=== PATIENT | female | born 1945 | race Two or more races ===

== ENCOUNTER 2024-09-29 13:33 | Outpatient (AMB) | payer MEDICARE, MEDICAID, SELFPAY ==
--- NOTE | 2024-09-29 13:53 | ORTHONT_ITS ---
Vital signs 09/29/24 13:54 Height 1.45 m Height Method Stated Weight 59.052 kg Weight Measurement Method Standing Scale BMI 28.0 BP 141/84 H Blood Pressure Source Automatic Cuff Blood Pressure Location Right Upper Arm Position Sitting Respiration 18 Pulse 60 Pulse Source Monitor Temp 96.7 F L Temp Source Temporal Artery Scan Pulse Oximetry (%) 90 L Oxygen Delivery Method Room Air Med/Allergies Allergies & Medications Allergies honey Allergy (Verified 09/29/24 13:54) latex Allergy (Verified 09/29/24 13:54) Latex, Natural Rubber Allergy (Verified 09/29/24 13:54) Rash Penicillins Allergy (Verified 09/29/24 13:54) FISH OIL Allergy (Uncoded 09/29/24 13:54) Medication Reconciliation lisinopril 10 mg tablet 10 mg PO QDAY 01/07/24 [History Confirmed 09/29/24] alendronate 70 mg tablet 70 mg PO QWEEK 08/12/24 [History Confirmed 09/29/24] acetaminophen 500 mg tablet (Acetaminophen Extra Strength) 1,000 mg (2 x 500 mg) PO Q6H PRN pain #90 tabs 08/17/24 [Rx Confirmed 09/29/24] aspirin 81 mg tablet,delayed release 81 mg PO BID #60 tabs 08/17/24 [Rx Confirmed 09/29/24] doxycycline hyclate 100 mg tablet 100 mg PO BID #14 tabs 08/17/24 [Rx Confirmed 09/29/24] gabapentin 300 mg capsule 300 mg PO .qhs #30 caps 08/17/24 [Rx Confirmed 09/29/24] oxycodone 5 mg tablet 5 mg PO Q6H PRN pain #28 tabs 08/17/24 [Rx Confirmed 09/29/24] sennosides 8.6 mg-docusate sodium 50 mg tablet (Senna-S) 1 tab-cap PO QDAY #30 tabs 08/17/24 [Rx Confirmed 09/29/24] Subjective Visit Visit for: follow up visit and knee Immunization / Flu Flu Vaccine in the Last 12 Months: No Flu Vaccine Exclusion Criteria: Refused by Patient History of Present Illness Chief complaint: Right knee replacement Alda is postop status post right total knee replacement. She is doing well. She is using a walker. She is happy with her progress. Her left knee now hurts her more,. She has tried NSAIDS, pt, and multiple injections in [place]. We have no recent knee xrays. Personal History Red flag PMH: none Pain Pain level (0-10): 7 Pain duration: WITH MOVEMENT Pain location: inside (medial) Pain quality: aching Pain timing: night and increases with activity Associated signs & symptoms: none Ambulatory data Ambulatory device: walker Treatments Improvement with previous injections: No Improvement with PT: No Improvement with NSAIDS: no Review of Systems Review of Systems: All systems negative unless otherwise noted in HPI. Exam Exam Patient is in no acute distress and is cooperative with the examination today. Patient has a normal mood and affect. Breathing is nonlabored. In no respiratory distress. Bilateral extremities were evaluated and demonstrates sensation intact to light touch. Palpable pedal pulses are present. No significant edema is present. Right knee demonstrate incision that is clean dry and intact. He has range of motion is 0 to 100 degrees displaced Assessment and Plan Problem List (1) Bilateral knee pain: Status: Acute Plan: Alda is a 79-year-old female with bilateral knee pain status post right total knee replacement. Her left knee is now bothering her more. I have no recent x- rays but she is failed conservative treatment. We will get x-rays and have her come back for a phone visit (2) Bilateral primary osteoarthritis of knee: Status: Acute Advanced Care Planning Discussion Advance care planning discussed with:: patient Office Procedures GNS Level of Care Nursing/Assessment Patient Status: Established Patient Nursing Assessment/Reassesment: Medication Reconciliation, Update PMH in EMR and Vital Signs Coordination of Care: Complex Care and Chronic Disease 1-5, Education Complex Pt/Fam, Consent,records obtained, informed consent, Results/Orders obtained and Staff clarify orders Special Needs: Language special needs Established Patient Charge Established Patient Point Assignment: 95 Established Patient Point Charge: EP Level 3 (80-115) Past Medical History Past Medical History Have you ever been diagnosed with any of the following: Neurological Problems Transient Ischemic Attacks (TIA): Yes Seizures: No Migraine: Yes (yrs ago) Cardiology Problems Hypercholesterolemia: Yes Congestive Heart Failure: No Hypertension: Yes Respiratory Problems Chronic Obstructive Pulmonary Disease (COPD): No Asthma: Yes Bronchitis: Yes Cough: No Wheezing: No Smoking: No Smoking Cessation Counseling: No Smoking Exposure: No Tobacco Use: No Stomache/Intestinal Problems Hepatitis: No Hiatal Hernia: Yes (abdominal hernia) Genital/Urinary Problems Renal Disease: No Reproductive Problems Previous Pregnancies: Yes Musculoskeletal Problems Arthritis: Yes Osteoporosis: Yes Fractures: Yes (left hip after fall 2022) Endocrine Problems Diabetes Mellitus Type 1: No Diabetes Mellitus Type 2: Yes (was taking med and Dr told her to stooped.) Psychologic Problems Depression: Yes (No meds) Other Problems Hospitalization: Yes (surgery, TIA) Shingles: No Blood Transfusions: No Blood Transfusion Reaction: No Anesthesia Reactions: No Chicken Pox: Yes Measles: Yes Mumps: Yes Cancer: No
[2024-09-29 13:54] VITALS: BP 141/84; PULSE 60; RESP 18; TEMP 35.9; O2SAT 90; BMI 28.0
== END 2024-09-29 13:48 | disposition home or self-care (01) ==
LOC: HODSRG 13:34
PROVIDERS: PCP Family Medicine; Referring Provider Family Medicine; Supervising Provider Orthopaedic Surgery Adult Reconstructive Orthopaedic Surgery; Visit Provider Orthopaedic Surgery Adult Reconstructive Orthopaedic Surgery
DX: M25.561 Pain in right knee (principal); M25.562 Pain in left knee; M17.0 Bilateral primary osteoarthritis of knee; Z96.651 Presence of right artificial knee joint; I10 Essential (primary) hypertension; E78.00 Pure hypercholesterolemia, unspecified; Z86.73 Personal history of transient ischemic attack (TIA), and cerebral infarction without residual deficits
CPT/HCPCS: 99213; G0463

== ENCOUNTER 2024-10-15 11:53 | Outpatient (AMB) | payer MEDICARE, SELFPAY ==
--- NOTE | 2024-10-15 11:31 | ORTHONT_ITS ---
Med/Allergies Allergies & Medications Allergies honey Allergy (Verified 10/15/24 11:31) latex Allergy (Verified 10/15/24 11:31) Latex, Natural Rubber Allergy (Verified 10/15/24 11:31) Rash Penicillins Allergy (Verified 10/15/24 11:31) FISH OIL Allergy (Uncoded 10/15/24 11:31) Medication Reconciliation lisinopril 10 mg tablet 10 mg PO QDAY 01/07/24 [History Confirmed 10/15/24] alendronate 70 mg tablet 70 mg PO QWEEK 08/12/24 [History Confirmed 10/15/24] acetaminophen 500 mg tablet (Acetaminophen Extra Strength) 1,000 mg (2 x 500 mg) PO Q6H PRN pain #90 tabs 08/17/24 [Rx Confirmed 10/15/24] aspirin 81 mg tablet,delayed release 81 mg PO BID #60 tabs 08/17/24 [Rx Confirmed 10/15/24] doxycycline hyclate 100 mg tablet 100 mg PO BID #14 tabs 08/17/24 [Rx Confirmed 10/15/24] gabapentin 300 mg capsule 300 mg PO .qhs #30 caps 08/17/24 [Rx Confirmed 10/15/24] oxycodone 5 mg tablet 5 mg PO Q6H PRN pain #28 tabs 08/17/24 [Rx Confirmed 10/15/24] sennosides 8.6 mg-docusate sodium 50 mg tablet (Senna-S) 1 tab-cap PO QDAY #30 tabs 08/17/24 [Rx Confirmed 10/15/24] Subjective Visit Visit for: follow up visit and knee Immunization / Flu Flu Vaccine in the Last 12 Months: No Flu Vaccine Exclusion Criteria: Refused by Patient and No Exclusion Criteria History of Present Illness Chief complaint: Right knee replacement Alda is postop status post right total knee replacement. She is doing well. She is using a walker. She is happy with her progress regarding her right side,. She has tried NSAIDS, pt, and multiple injections in [place]. She reports the left knee pain is affecting her quality of life and happiness. Personal History Red flag PMH: none Pain Pain level (0-10): 7 Pain duration: WITH MOVEMENT Pain location: inside (medial), outside (lateral) and anterior Pain quality: sharp, dull and aching Pain timing: night and increases with activity Associated signs & symptoms: weakness, stiffness and none Ambulatory data Ambulatory device: walker and none Treatments Improvement with previous injections: No Improvement with PT: No Improvement with NSAIDS: no Review of Systems Review of Systems: All systems negative unless otherwise noted in HPI. Assessment and Plan Problem List (1) Bilateral knee pain: Status: Acute Plan: Alda is a 79-year-old female with bilateral knee pain status post right total knee replacement. Her left knee is now bothering her more. Went over her recent x-rays which demonstrate significant joint space narrowing, osteophytes, and varus deformity. We thus discussed total knee replacement is a reasonable option given her failure of conservative treatment primarily in [employer]. We will plan for surgery in November. The nature and purpose of the total knee replacement, alternative method(s) of treatment, the material risks involved, and the possibility of complications were fully explained to the patient. The patient does NOT have any of the following contraindications to TKA: - Active infection of the knee joint, OR - Active systemic bacteremia, OR - Active skin infection or open wound at surgical site, OR - Neuropathic arthritis, OR - Severe, rapidly progressive neurological disease, OR - Severe medical condition that makes risks of surgery outweigh the potential benefit The patient was told the most common risks and complications associated with a total knee replacement include, but are not limited to: blood clots in the leg, fatal pulmonary embolism, dislocation of the prosthesis, intraoperative and postoperative fractures of the femur or tibia, infection, failure of the prosthesis or grafting materials, complications from anesthesia, reactions to blood transfusions, postoperative leg length inequality, instability of the knee replacement, nerve damage or injury, vascular injury, delayed wound healing, infection, other injury or even . In addition, there are risks associated with anesthesia given during this operation. Also, the patient was told that after undergoing a total knee replacement there may still be persistent pain or disability. The patient was informed that the success of this operation in part depends upon the mechanical devices which are going to be implanted and that these devices can fail or malfunction, and may need to be repaired or replaced and there are no guarantees as to the longevity of this device or its parts and that it or its parts could fail prematurely. The patient was also notified that during the course of surgery, there may be a need to use bone graft from donors, and that any bone graft used will be carefully screened for communicable diseases, including AIDS, hepatitis, Bronson-Creutzfeldt, or other diseases, but despite the screening procedures, there is a small chance that they could contract one of these diseases. Finally, the patient was asked to follow completely and fully with all advice and recommended treatments, and that recovery and ultimate outcome are affected by their compliance with recommended treatment. We discussed the risks, benefits and treatment alternatives, and the patient is interested in proceeding with surgery. We will try to set this up as expeditiously as possible. (2) Bilateral primary osteoarthritis of knee: Status: Acute Advanced Care Planning Discussion Advance care planning discussed with:: patient
== END 2024-10-15 11:54 | disposition home or self-care (01) ==
LOC: HODSRG 11:53
PROVIDERS: PCP Family Medicine; Referring Provider Family Medicine; Supervising Provider Orthopaedic Surgery Adult Reconstructive Orthopaedic Surgery; Visit Provider Orthopaedic Surgery Adult Reconstructive Orthopaedic Surgery
DX: M25.562 Pain in left knee (principal); M25.561 Pain in right knee; M17.0 Bilateral primary osteoarthritis of knee; Z96.651 Presence of right artificial knee joint
CPT/HCPCS: 99212; G0463

== ENCOUNTER 2025-07-27 13:02 | Outpatient (AMB) | payer MEDICARE, SELFPAY ==
--- NOTE | 2025-07-27 13:05 | ORTHONT_ITS ---
Vital signs 07/27/25 13:14 Height 1.45 m Height Method Measured Weight 61.008 kg Weight Measurement Method Standing Scale BMI 29.0 BP 132/69 H Blood Pressure Source Automatic Cuff Blood Pressure Location Left Upper Arm Position Sitting Respiration 18 Pulse 53 L Pulse Source Monitor Temp 98.0 F Temp Source Temporal Artery Scan Pulse Oximetry (%) 92 L Oxygen Delivery Method Room Air Med/Allergies Allergies & Medications Allergies honey Allergy (Verified 07/27/25 13:14) latex Allergy (Verified 07/27/25 13:14) Latex, Natural Rubber Allergy (Verified 07/27/25 13:14) Rash Penicillins Allergy (Verified 07/27/25 13:14) FISH OIL Allergy (Uncoded 07/27/25 13:14) Medication Reconciliation lisinopril 10 mg tablet 10 mg PO QDAY 01/07/24 [History Confirmed 07/27/25] alendronate 70 mg tablet 70 mg PO QWEEK 08/12/24 [History Confirmed 07/27/25] acetaminophen 500 mg tablet (Acetaminophen Extra Strength) 1,000 mg (2 x 500 mg) PO Q6H PRN pain #90 tabs 08/17/24 [Rx Confirmed 07/27/25] aspirin 81 mg tablet,delayed release 81 mg PO BID #60 tabs 08/17/24 [Rx Confirmed 07/27/25] doxycycline hyclate 100 mg tablet 100 mg PO BID #14 tabs 08/17/24 [Rx Confirmed 07/27/25] gabapentin 300 mg capsule 300 mg PO .qhs #30 caps 08/17/24 [Rx Confirmed 07/27/25] oxycodone 5 mg tablet 5 mg PO Q6H PRN pain #28 tabs 08/17/24 [Rx Confirmed 07/27/25] sennosides 8.6 mg-docusate sodium 50 mg tablet (Senna-S) 1 tab-cap PO QDAY #30 tabs 08/17/24 [Rx Confirmed 07/27/25] Exam Exam Patient is in no acute distress and is cooperative with the examination today. Patient has a normal mood and affect. Breathing is nonlabored. In no respiratory distress. Bilateral extremities were evaluated and demonstrates sensation intact to light touch. Palpable pedal pulses are present. No significant edema is present. Right knee demonstrate incision that is clean dry and intact. He has range of motion is 0 to 100 degrees Left knee demonstrates range of motion from 0 to 100 degrees. She has varus alignment. She is tender to palpation medially X-rays from [facility] demonstrates complete joint space obliteration medial significant osteophytes Assessment and Plan Problem List (1) Bilateral knee pain: Status: Acute Plan: Alda is a 79-year-old female with bilateral knee pain status post right total knee replacement. Her left knee is now bothering her more. X-rays of the left knee demonstrates [id number] arthritis of the medial compartment. She has failed conservative treatment occluding multiple injections, anti- inflammatories, and home exercises. We thus discussed total knee replacement is a reasonable option The nature and purpose of the total knee replacement, alternative method(s) of treatment, the material risks involved, and the possibility of complications were fully explained to the patient. The patient does NOT have any of the following contraindications to TKA: - Active infection of the knee joint, OR - Active systemic bacteremia, OR - Active skin infection or open wound at surgical site, OR - Neuropathic arthritis, OR - Severe, rapidly progressive neurological disease, OR - Severe medical condition that makes risks of surgery outweigh the potential benefit The patient was told the most common risks and complications associated with a total knee replacement include, but are not limited to: blood clots in the leg, fatal pulmonary embolism, dislocation of the prosthesis, intraoperative and postoperative fractures of the femur or tibia, infection, failure of the prosthesis or grafting materials, complications from anesthesia, reactions to blood transfusions, postoperative leg length inequality, instability of the knee replacement, nerve damage or injury, vascular injury, delayed wound healing, infection, other injury or even . In addition, there are risks associated with anesthesia given during this operation. Also, the patient was told that after undergoing a total knee replacement there may still be persistent pain or disability. The patient was informed that the success of this operation in part depends upon the mechanical devices which are going to be implanted and that these devices can fail or malfunction, and may need to be repaired or replaced and there are no guarantees as to the longevity of this device or its parts and that it or its parts could fail prematurely. The patient was also notified that during the course of surgery, there may be a need to use bone graft from donors, and that any bone graft used will be carefully screened for communicable diseases, including AIDS, hepatitis, Bronson-Creutzfeldt, or other diseases, but despite the screening procedures, there is a small chance that they could contract one of these diseases. Finally, the patient was asked to follow completely and fully with all advice and recommended treatments, and that recovery and ultimate outcome are affected by their compliance with recommended treatment. We discussed the risks, benefits and treatment alternatives, and the patient is interested in proceeding with surgery. We will try to set this up as expeditiously as possible. (2) Bilateral primary osteoarthritis of knee: Status: Acute Advanced Care Planning Discussion Advance care planning discussed with:: patient Office Procedures GNS Level of Care Nursing/Assessment Patient Status: Established Patient Nursing Assessment/Reassesment: Medication Reconciliation, Orthostatic Vitals, Update PMH in EMR and Vital Signs Coordination of Care: Complex Care and Chronic Disease 1-5, Education Complex Pt/Fam, Consent,records obtained, informed consent, Results/Orders obtained and Staff clarify orders Special Needs: Language special needs Established Patient Charge Established Patient Point Assignment: 105 Established Patient Point Charge: EP Level 3 (80-115) MA Intake Visit Data Collection New Patient or Established: Established Patient (seen at [facility] within 3 years) Reason for Visit:: XRAY RESULTS Seen by Clinical Staff ONLY (RN/MA): No Immunopathologist Required: No PCP or OBGYN visit in last 3 months: Yes Hx Now: No Do You Feel Safe at Home: Yes Authorities Contacted: N/A Questionairres Past Medical History Past Medical History Have you ever been diagnosed with any of the following: Neurological Problems Transient Ischemic Attacks (TIA): Yes Seizures: No Migraine: Yes (yrs ago) Cardiology Problems Hypercholesterolemia: Yes Congestive Heart Failure: No Hypertension: Yes Respiratory Problems Chronic Obstructive Pulmonary Disease (COPD): No Asthma: Yes Bronchitis: Yes Cough: No Wheezing: No Smoking: No Smoking Cessation Counseling: No Smoking Exposure: No Tobacco Use: No Stomache/Intestinal Problems Hepatitis: No Hiatal Hernia: Yes (abdominal hernia) Genital/Urinary Problems Renal Disease: No Reproductive Problems Previous Pregnancies: Yes Musculoskeletal Problems Arthritis: Yes Osteoporosis: Yes Fractures: Yes (left hip after fall 2022) Endocrine Problems Diabetes Mellitus Type 1: No Diabetes Mellitus Type 2: Yes (was taking med and told her to stooped.) Psychologic Problems Depression: Yes (No meds) Other Problems Hospitalization: Yes (surgery, TIA) Shingles: No Blood Transfusions: No Blood Transfusion Reaction: No Anesthesia Reactions: No Chicken Pox: Yes Measles: Yes Mumps: Yes Cancer: No Subjective Visit Visit for: follow up visit and knee Immunization / Flu Flu Vaccine in the Last 12 Months: Yes Flu Vaccine Exclusion Criteria: Already Received History of Present Illness Chief complaint: XRAY RESULTS Patient is a pleasant 80 yo female with a right total knee replacement done 11 months ago. We have done multiple injections in the past as well as anti- inflammatories and Tylenol. At this point in time, she reports the pain is affecting her life. She is still using a walker because of the left knee pain. She reports her right knee does not hurt at all. Personal History Red flag PMH: none BMI Counceling provided: No Pain Pain level (0-10): 9 Pain quality: burning and tingling Pain timing: night Associated signs & symptoms: none Ambulatory data Ambulatory device: walker Treatments Improvement with previous injections: No Improvement with PT: No Improvement with NSAIDS: no Review of Systems Review of Systems: All systems negative unless otherwise noted in HPI.
[2025-07-27 13:14] VITALS: BP 132/69; PULSE 53; RESP 18; TEMP 36.7; O2SAT 92; BMI 29.0
== END 2025-07-27 13:28 | disposition home or self-care (01) ==
LOC: HODSRG 13:02
PROVIDERS: PCP Family Medicine; Referring Provider Family Medicine; Supervising Provider Orthopaedic Surgery Adult Reconstructive Orthopaedic Surgery; Visit Provider Orthopaedic Surgery Adult Reconstructive Orthopaedic Surgery
DX: M25.562 Pain in left knee (principal); M25.561 Pain in right knee; M17.0 Bilateral primary osteoarthritis of knee; Z96.651 Presence of right artificial knee joint; I10 Essential (primary) hypertension; E78.00 Pure hypercholesterolemia, unspecified; Z86.73 Personal history of transient ischemic attack (TIA), and cerebral infarction without residual deficits; E11.9 Type 2 diabetes mellitus without complications
CPT/HCPCS: 99213; G0463

== ENCOUNTER → 2025-08-12 | Outpatient (CLI) | payer MEDICARE, SELFPAY ==
--- NOTE | 2025-08-12 | XR_ITS ---
Examination: CT left lower extremity, without contrast. 2-D sagittal reconstructions. 2-D coronal reconstructions. 3-D reconstructions. Date and time of exam:August 12, 2025 at 1240 hours INDICATIONS: Diagnosis primary left knee unilateral osteoarthritis, left knee pain for years CTDI: vol (mGy):18.5 DLP: (mGycm): 776 Technique: Multiple 1.25 mm axial sections of the left lower extremity without intravenous contrast have been obtained. 2-D sagittal and coronal reconstructions have been obtained. 3-D reconstructions have been obtained. Low dose protocols were performed. One or more of the following dose reduction techniques were used; automated exposure control, adjustment of the mA and/or KV according to patient size, use of iterative reconstruction technique. Findings: Severe osteopenia. Healed left hip fracture, moderate left hip osteoarthritis Severe left knee tricompartment osteoarthritis Severe osteopenia No fracture No patellar dislocation IMPRESSION: Severe left knee tricompartment osteoarthritis
== END | disposition home or self-care (01) ==
PROVIDERS: PCP Family Medicine; Referring Provider Orthopaedic Surgery Adult Reconstructive Orthopaedic Surgery; Visit Provider Orthopaedic Surgery Adult Reconstructive Orthopaedic Surgery
DX: M17.12 Unilateral primary osteoarthritis, left knee (principal)
CPT/HCPCS: 73700

== ENCOUNTER 2025-08-25 07:35 | Day surgery (SDC) | payer MEDICARE, SELFPAY ==
[2025-08-20 07:25] VITALS: BMI 29.8
[2025-08-20 08:11] LABS: Basophils # (Auto) 0.0 Thou/mm3 (0.0-0.2); Basophils % (Auto) 1 % (0-2.5); Eosinophils # (Auto) 0.2 Thou/mm3 (0.0-0.5); Eosinophils % (Auto) 3 % (0-10); Hematocrit 38.5 % (36.0-46.0); Hemoglobin 13.0 g/dL (12.0-16.0); Immature Granulocytes Auto 0.02 Thou/mm3 (0.00-0.00); Lymphocytes # (Auto) 2.0 Thou/mm3 (1.0-4.8); Lymphocytes % (Auto) 41 % (10-50); Mean Corpuscular HGB Conc 33.8 g/dl (31.0-37.0); Mean Corpuscular Hemoglobin 31.4 pg (25.0-35.0); Mean Corpuscular Volume 93 fL (80-100); Monocytes # (Auto) 0.5 Thou/mm3 (0.0-0.8); Monocytes % (Auto) 10 % (0-12); Neutrophils # (Auto) 2.2 Thou/mm3 (1.8-7.7); Neutrophils % (Auto) 45 % (37-80); Nucleated Red Blood Cell # 0.00 Thou/mm3 (0.00-0.00); Nucleated Red Blood Cell % 0 /100 WBC (0); Platelet Count 157 Thou/mm3 (140-440); RDW Standard Deviation 45.4 fL (36.4-46.3); Red Blood Count 4.14 Miln/mm3 (4.00-5.20); White Blood Count 4.9 Thou/mm3 (3.6-11.0)
[2025-08-20 08:31] LABS: Alanine Aminotransferase 8 U/L (10-49); Albumin, Serum 3.8 gm/dL (3.4-4.8); Albumin/Globulin Ratio 1.6 (1.2-2.2); Alkaline Phosphatase 51 U/L (46-116); Anion Gap 8 (7-16); Aspartate Amino Transferase 15 U/L (0-34); BUN/Creatinine Ratio 16 Ratio (12-20); Bilirubin,Total 1.1 mg/dL (0.3-1.2); Blood Urea Nitrogen 13 mg/dL (9-23); Calcium 10.8 mg/dL (8.3-10.6); Calcium (Corrected) 11.0 mg/dL (8.5-10.1); Carbon Dioxide 29.5 mMol/L (20.0-31.0); Chloride 102 mMol/L (98-107); Creatinine (Component) 0.8 mg/dL (0.6-1.3); Estimated Creatinine Clearance 44.1 mL/min (>60); Globulin 2.4 gm/dL (2.3-3.5); Glucose 98 mg/dL (74-106); Osmolality,Calculated 277 (275-295); Potassium 3.8 mMol/L (3.4-5.1); Sodium 139 mMol/L (136-145); Total Protein 6.2 gm/dL (5.7-8.2); eGFR > 60 See Note
[2025-08-20 08:35] LABS: INR 1.0 (0.9-1.3); Partial Thromboplastin Time 26.5 Seconds (22.0-36.0); Prothrombin Time 10.9 Seconds (9.0-12.2)
[2025-08-25] VITALS (13 sets, daily range): BP systolic 129–170; BP diastolic 61–83; PULSE 58–78; RESP 13–18; TEMP 36.1–36.8; O2SAT 92–97; BMI 29.2; BMI 13.0
--- NOTE | 2025-08-25 07:54 | EKG_ITS ---
[facility] Test Date: 2025-08-25 Pat Name: LISSETT FABIAN Department: Room: - Gender: Female Physician Office Rep: LIBERTY : 1945 Requested By: Chuy Sequeira Order Number: [id number] Reading MD: Chuy Sequeira Measurements Intervals [place] Rate: 56 P: 53 ND: 164 QRS: -18 QRSD: 102 T: 15 QT: 433 QTc: 418 Interpretive Statements SINUS BRADYCARDIA No previous ECG available for comparison /store/S0/[id number]
[2025-08-25] MEDS: PREGABALIN 75 MG CAPSULE PO (08:43)
[2025-08-25] MEDS: ACETAMINOPHEN 325 MG TABLET 650 MG PO (08:44)
--- NOTE | 2025-08-25 10:49 | PD.SUROPNT ---
Date of Procedure 08/25/25 Pre Op Diagnosis left knee osteoarthritis Post Op Diagnosis left knee osteoarthritis Procedure left total knee replacement dasha Findings full thickness cartilage loss and osteophytes Procedure Description Indication: The patient is a 80 year old who has a long history of left knee pain. X-rays show degenerative arthritis involving the knee. Over the past several years the patient has had increasing pain, progressive limitation in function. He has failed conservative measures including activity modification, physical therapy, injections, anti-inflammatories, and assistive devices. After a lengthy discussion of the risks and benefits, the patient presents now for total knee replacement. The nature and purpose of the total knee replacement, alternative method(s) of treatment, the material risks involved, and the possibility of complications were fully explained to the patient. The patient was told the most common risks and complications associated with a total knee replacement include, but are not limited to blood clots in the leg, fatal pulmonary embolism, dislocation of the prosthesis, intraoperative and postoperative fractures of the femur or tibia, infection, failure of the prosthesis or grafting materials, complications from anesthesia, reactions to blood transfusions, postoperative leg length inequality, instability of the knee replacement, nerve damage or injury, vascular injury, delayed wound healing, infections, other injury or even . In addition, there are risks associated with anesthesia given during this operation, temporary or permanent numbness on the skin lateral to the incision can be a complication unique to total knee surgery, and kneeling can be painful after knee replacement surgery. Also, the patient was told that after undergoing a total knee replacement there may still be pain or disability. We discussed with the patient that we will be using a robot-assisted technology. We discussed that there is a possibility of converting to manual instrumentation. The patient was informed that the success of this operation in part depends upon the mechanical devices which are going to be implanted and that these devices can fail or malfunction, and may need to be repaired or replaced and there are no guarantees as to the longevity of this device or its part and that it or its parts could fail prematurely. Finally, the patient was asked to follow completely and fully with all advice and recommended treatments, and that recovery and ultimate outcome are affected by their compliance with recommended treatment. Surgical technique: Patient was marked and consented in the pre-operative area. The patient was brought to the operating room and placed on the operating table in a supine position. Prior to positioning, a timeout procedure was performed between the surgeon, the anesthesiologist, and the nursing staff where the patient and the operative side were identified and confirmed. After adequate general anesthetic was obtained, the left lower extremity was prepped and draped in the usual sterile fashion. A weight based dose of Cefazolin were administered within 1 hour prior to incision. The robot was preregistered and calirated before the incision. The extremity was exsanguinated with an esmarch badge and tourniquet inflated to 250mmHg. A midline incision was made. A median parapatellar arthrotomy was made. The patella was subluxed laterally. A medial release was performed to expose the medial tibia. His femoral and tibial pins were placed through an intra incisional manner for both cases. Every effort was made to ensure that the distalmost aspect of the pin was hung in the second cortex. The arrays were then tightened several times to ensure that it was fixed for the remainder of the case. Both femoral and tibial checkpoints were then placed. We then went through the registration process of the bone. We then assessed the knee deformity and attempted to correct it. We also used the robot to aid in judging laxity in both extension and flexion. Final based on laxity and alignment we changed the preoperative assessment to obtain proper proper implant positioning and to correct deformity. Attention was then placed to the tibia. We made a tibial cut using the robot ensuring that both the MCL and the patella tendon were protected with retractors. We then went to the femur and made the posterior cut followed by the anterior cut and the anterior chamfer. The bone was then removed and we made a distal femur cut and a posterior chamfer cut. We verified all cuts. A trial reduction was performed with a size 3 femoral component and a size 2 keeled tibial component. The patella tracked centrally, and no lateral retinacular release was necessary. The trial implants were removed. The arrays, pins, and checkpoints were all removed. We performed a verification that all pins were removed. The cut bone surfaces were lavaged. A size 3 left femoral component, a size 2 keeled tibial component were impacted into position using 2 bags of palacos. A trial insert was placed. The knee was left in extension until the cement hardened. The knee was felt to be well balanced in the sagittal and coronal plane. The final 2x11mm cruciate-substituting articular insert was impacted into the tibial tray. The knee was brought out to full extension, flexed up to 120 degrees. It was stable to varus and valgus stress and appropriately balanced in flexion and extension. The wounds were copiously irrigated following deflation of tourniquet. The medial retinaculum was reapproximated with #1 vicryl and quill. The subcutaneous tissues were closed with 0 and 2-0 interrupted Vicryl. The skin was closed with 3-0 Monofilament V loc suture. A sterile dressing was applied. The patient was transferred to a bed and brought to recovery in stable condition. The patient tolerated the procedure well. There were no intraoperative complications. Sponge and needle counts were correct times 2. As the attending surgeon, I attest I was present and performed the entire operation. Grafts/Implants Size 3 CR Femur Size 2 Tibia 11mm poly CS 2 bags of palacos Anesthesia spinal Implants [employer] Pathology / specimen None Pathology comment: none Estimated Blood Loss 150 Condition Stable Disposition same day Surgeon Reuben Sapp MD Surgical Staff Operation Date: 08/25/25 10:30 Case Staff Anesthesiologist: Chuy Sequeira RNpredatory animal exterminator: She Pillai
--- NOTE | 2025-08-25 11:02 | XR_ITS ---
Examination: Left knee 2 views Technique one AP lateral left knee 2 views Date and time: August 25, 2025 1214 hours INDICATIONS: Postop knee surgery today. FINDINGS: Total left knee arthroplasty. Satisfactory alignment. Prominent osteopenia IMPRESSION: Total left knee arthroplasty with satisfactory alignment
--- NOTE | 2025-08-25 11:27 | SUR.PHASEI ---
pt received from OR in recovery bay 8. pt asleep but responds to voice, breathing unlabored on room air. v/s stable. pt dressing to left lower extremity cdi. report received from Dr. Sequeira and Clotilde MOREIRA.
--- NOTE | 2025-08-25 12:30 | SUR.PHASEI ---
pt tolerating oral fluids without difficulty swallowing or n/v
--- NOTE | 2025-08-25 12:55 | SUR.PHASEII ---
report to Bernabe MOREIRA
--- NOTE | 2025-08-25 15:00 | SUR.PHASEII ---
pt awake and alert, breathing unlabored on room air. v/s stable. pt dressing to left lower extremity cdi. pt cleared by physical therapist Mala. pt able to ambulate to pacu restroom with walker. d/c instructions given with daughter Dorothy in room, all questions answered. pt d/c via wheelchair with all belongings.
== END 2025-08-25 15:00 | disposition home or self-care (01) ==
PROVIDERS: Anesthesiology; PCP Family Medicine; Referring Provider Orthopaedic Surgery Adult Reconstructive Orthopaedic Surgery; Visit Provider Orthopaedic Surgery Adult Reconstructive Orthopaedic Surgery
PROC: (CPT 20985; principal; 2025-08-25 10:30)
DX: M17.12 Unilateral primary osteoarthritis, left knee (principal); M25.762 Osteophyte, left knee; Z01.810 Encounter for preprocedural cardiovascular examination
CPT/HCPCS: 20985; 27447; 36415; 73560; 80053; 85025; 85610; 85730; 93005; 97162; A4217; A4649; C1713; C1776; J0690; J1100; J2250; J2704; J2795; J3010; J3490; J7999; A4648; A9270

== ENCOUNTER 2025-08-29 08:05 | Emergency (ER) | payer MEDICARE, SELFPAY ==
[2025-08-29 08:07] VITALS: BMI 24.7
--- NOTE | 2025-08-29 08:14 | EKG_ITS ---
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
[2025-08-29 08:23] VITALS: BP 156/89; PULSE 52; RESP 17; TEMP 36.7; O2SAT 95
--- NOTE | 2025-08-29 08:37 | PD.EDRME ---
Rapid Medical Screening Exam E Arrival date/time: 08/29/25 08:05 This is is a 80-year-old female that comes into the emergency room with multiple complaints. Patient reports that she recently had a knee replacement on August [address] Sapp. Patient states that she started noticing that she had some irritation around the wound. And she also noticed that when she take the antibiotic she felt itchy. Patient currently on doxycycline. Patient has been seeing home health physical therapy and they told her to remove the adhesive dressing over the surgical site. Per patient's daughter after they removed that patient skin became very irritated and got blisters at the bottom part of the wound. Patient was told to keep wound uncovered for now. Patient also reports that starting yesterday she started having palpitations patient states that she felt like her heart was beating out of her chest. Patient states that this resolved when she was cough being. Patient denies chest pain shortness of breath at this time. I have greeted and performed a focused initial assessment of this patient. Initial appropriate labs ordered at this time. A comprehensive ED assessment and evaluation of the patient and analysis of all test and completion of medical decision making process will be conducted by additional ED provider. Chief Complaint: General Adult/Misc Complain Time Seen by Provider: 08/29/25 08:14 Vital signs: Vital Signs Temperature 98.0 F 08/29/25 08:23 Pulse Rate 52 L 08/29/25 08:23 Respiratory Rate 17 08/29/25 08:23 Blood Pressure 156/89 H 08/29/25 08:23 Pulse Oximetry (%) 95 08/29/25 08:23 Oxygen Delivery Method Room Air 08/29/25 08:23
--- NOTE | 2025-08-29 08:40 | XR_ITS ---
Examination: AP chest single view Technique one AP portable sitting chest single view Date and time: August 29, 2025, 0859 hrs. Indications: Chest pain today. Findings: Mild prominence left ventricle. Ectatic thoracic aorta. No pneumonia or pulmonary edema. Moderate osteopenia. Impression: No pneumonia or pulmonary edema
[2025-08-29 09:37] LABS: Basophils # (Auto) 0.0 Thou/mm3 (0.0-0.2); Basophils % (Auto) 1 % (0-2.5); Eosinophils # (Auto) 0.1 Thou/mm3 (0.0-0.5); Eosinophils % (Auto) 2 % (0-10); Hematocrit 37.0 % (36.0-46.0); Hemoglobin 12.8 g/dL (12.0-16.0); Immature Granulocytes Auto 0.02 Thou/mm3 (0.00-0.00); Lymphocytes # (Auto) 1.3 Thou/mm3 (1.0-4.8); Lymphocytes % (Auto) 30 % (10-50); Mean Corpuscular HGB Conc 34.6 g/dl (31.0-37.0); Mean Corpuscular Hemoglobin 32.4 pg (25.0-35.0); Mean Corpuscular Volume 94 fL (80-100); Monocytes # (Auto) 0.5 Thou/mm3 (0.0-0.8); Monocytes % (Auto) 12 % (0-12); Neutrophils # (Auto) 2.4 Thou/mm3 (1.8-7.7); Neutrophils % (Auto) 55 % (37-80); Nucleated Red Blood Cell # 0.00 Thou/mm3 (0.00-0.00); Nucleated Red Blood Cell % 0 /100 WBC (0); Platelet Count 167 Thou/mm3 (140-440); RDW Standard Deviation 45.5 fL (36.4-46.3); Red Blood Count 3.95 Miln/mm3 (4.00-5.20); White Blood Count 4.4 Thou/mm3 (3.6-11.0)
[2025-08-29 09:45] VITALS: BP 159/82; PULSE 66; RESP 16; O2SAT 97
[2025-08-29 09:50] LABS: B-Type Natriuretic Peptide 43 pg/mL (0-100)
[2025-08-29 10:02] LABS: Albumin, Serum 3.9 gm/dL (3.4-4.8); Albumin/Globulin Ratio 1.6 (1.2-2.2); Alkaline Phosphatase 61 U/L (46-116); Anion Gap 7 (7-16); Aspartate Amino Transferase 23 U/L (0-34); BUN/Creatinine Ratio 11 Ratio (12-20); Bilirubin,Total 1.2 mg/dL (0.3-1.2); Blood Urea Nitrogen 9 mg/dL (9-23); Calcium 9.6 mg/dL (8.3-10.6); Calcium (Corrected) 9.7 mg/dL (8.5-10.1); Carbon Dioxide 30.3 mMol/L (20.0-31.0); Chloride 97 mMol/L (98-107); Creatinine (Component) 0.8 mg/dL (0.6-1.3); Estimated Creatinine Clearance 49.9 mL/min (>60); Globulin 2.4 gm/dL (2.3-3.5); Glucose 109 mg/dL (74-106); Osmolality,Calculated 267 (275-295); Potassium 4.0 mMol/L (3.4-5.1); Sodium 134 mMol/L (136-145); Total Protein 6.3 gm/dL (5.7-8.2); Troponin I < 0.020 ng/mL (0.0-0.045); eGFR > 60 See Note
[2025-08-29 10:04] LABS: Alanine Aminotransferase 10 U/L (10-49)
[2025-08-29 10:19] VITALS: BP 162/72; PULSE 51; RESP 16; TEMP 36.4; O2SAT 97
--- NOTE | 2025-08-29 10:34 | EKG_ITS ---
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
[2025-08-29] MEDS: FAMOTIDINE INJ 10 MG/ML VIAL 2 ML 20 MG IVP (10:53)
[2025-08-29] MEDS: MethylPREDNISolone SOD SUCC 62.5 MG/ML 2ML VIAL 125 MG IVP (10:53)
--- NOTE | 2025-08-29 10:59 | PD.EDSKIN ---
ED Skin Abcess FB-RME/HPI General Chief complaint: General Adult/Misc Complain Stated complaint: MULTIPLE COMPLAINTS Time Seen by Provider: 08/29/25 08:14 Arrival date/time: 08/29/25 08:05 Limitations: no limitations RME / HPI RME / HPI narrative: 08/29/25 08:05 This is is a 80-year-old female that comes into the emergency room with multiple complaints. Patient reports that she recently had a knee replacement on August [address] Sapp. Patient states that she started noticing that she had some irritation around the wound. And she also noticed that when she take the antibiotic she felt itchy. Patient currently on doxycycline. Patient has been seeing home health physical therapy and they told her to remove the adhesive dressing over the surgical site. Per patient's daughter after they removed that patient skin became very irritated and got blisters at the bottom part of the wound. Patient was told to keep wound uncovered for now. Patient also reports that starting yesterday she started having palpitations patient states that she felt like her heart was beating out of her chest. Patient states that this resolved when she was cough being. Patient denies chest pain shortness of breath at this time. I have greeted and performed a focused initial assessment of this patient. Initial appropriate labs ordered at this time. A comprehensive ED assessment and evaluation of the patient and analysis of all test and completion of medical decision making process will be conducted by additional ED provider. DR. 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 The patient underwent a left knee replacement on August [address] Sapp. She reports that she initially noticed itching and irritation around the wound, which worsened after her home health team removed the adhesive dressing as instructed. Following removal, the skin around the lower portion of the incision developed blisters and increased redness. She is currently taking doxycycline but reports feeling itchy when taking the antibiotic. She denies fever, chills, drainage, or worsening pain at the incision site. Per daughter, the patient has multiple allergies and saw an health program specialist, but no results yet. Related Data Home Medications ?Medication ?Instructions ?Recorded ?Confirmed alendronate 70 mg tablet 70 mg PO QWEEK 08/12/24 08/25/25 lisinopril 20 1 tab PO DAILY 08/20/25 08/25/25 mg-hydrochlorothiazide 25 mg tablet Previous Rx's ?Medication ?Instructions ?Recorded aspirin 81 mg tablet,delayed 81 mg PO BID #60 tabs 08/17/24 release acetaminophen 500 mg tablet 1,000 mg (2 x 500 mg) PO Q6H PRN 08/25/25 (Acetaminophen Extra Strength) pain #90 tabs aspirin 81 mg tablet,delayed 81 mg PO BID #60 tabs 08/25/25 release doxycycline hyclate 100 mg tablet 100 mg PO BID #14 tabs 08/25/25 gabapentin 300 mg capsule 300 mg PO .qhs #30 caps 08/25/25 oxycodone 5 mg tablet 5 mg PO Q6H PRN pain #28 tabs 08/25/25 sennosides 8.6 mg-docusate sodium 1 tab-cap PO QDAY #30 tabs 08/25/25 50 mg tablet (Senna-S) clindamycin HCl 300 mg capsule 300 mg PO Q6H #8 caps 08/29/25 (Cleocin HCl) epinephrine 0.3 mg/0.3 mL 0.3 ml subcut PRN PRN anaphylaxis 08/29/25 injection, auto-injector (Auvi-Q) #2 ea Allergies Allergy/AdvReac Type Severity Reaction Status Date / Time doxycycline Allergy Severe Hives Verified 08/29/25 08:13 honey Allergy Severe Hives Verified 08/29/25 08:13 Penicillins Allergy Severe Hives Verified 08/29/25 08:13 Latex, Natural Rubber Allergy Rash Verified 08/29/25 08:13 FISH OIL Allergy Uncoded 08/29/25 08:13 Review of Systems Review of Systems Systems Reviewed: All systems reviewed, normal except as documented Past Medical History Past Medical History NEUROLOGIC: Positive Neurological Disorders, Transient Ischemic Attacks (TIA) and Migraine (yrs ago) CARDIAC: Positive Cardiac Disorders, Hypercholesterolemia and Hypertension RESPIRATORY: Positive Asthma and Bronchitis GASTROINTESTINAL: Positive Gastrointestinal Disorders (constipation) and Hiatal Hernia (abdominal hernia) REPRODUCTIVE: Positive Previous Pregnancies MUSCULOSKELETAL: Positive Musculoskeletal Disorders, Arthritis, Osteoporosis and Fractures (left hip after fall 2022) ENDOCRINE: Positive Endocrine Disorders and Diabetes Mellitus Type 2 (was taking med and Dr told her to stooped.) PSYCHO/SOCIAL: Positive Depression (No meds) OTHER HISTORY: Positive Hospitalization (surgery, TIA), Falls, Chicken Pox, Measles and Mumps Family History FAMILY HISTORY: Positive Family Cardiac Disorders, Family Cancer and Family Surgery Surgical History SURGICAL: Positive Joint Replacement Social History SMOKING STATUS: Never smoker SUBSTANCE USE: does not use ALCOHOL: Never ED Exam General Limitations: Present no limitations General appearance: Present alert and in no apparent distress Head Head exam: Present atraumatic, normocephalic and normal inspection Eye Eye exam: Present normal appearance, PERRL and EOMI ENT ENT exam: Present normal exam, normal oropharynx and mucous membranes moist Neck Neck exam: Present normal inspection, full ROM and trachea midline Chest Chest inspection: Present normal inspection and symmetric chest wall rise Respiratory Respiratory exam: Present normal lung sounds bilaterally; Absent respiratory distress, wheezes or stridor Cardiovascular Cardiovascular exam: Present normal rhythm, bradycardia and normal heart sounds Abdominal Exam Abdominal exam: Present soft and normal bowel sounds; Absent distention, tenderness or guarding Extremities Exam Extremities exam: Present other (Left knee surgical incision clean, dry, and intact with mild erythema and blistering noted at the inferior aspect. No purulent drainage, fluctuance, or warmth. Range of motion limited due to post-surgical status.) Back Exam Back exam: Present normal inspection and full ROM Neurological Exam Neurological exam: Present alert, oriented X3 and CN II-XII intact Psychiatric Psychiatric exam: Present normal affect and normal mood Skin Skin exam: Present other (Blistering localized around left knee incision site, no diffuse rash or urticaria elsewhere.) Course Quality Measures none Orders Category Date Time Status EKG (ED ONLY) *Do not use* NOW Care 08/29/25 08:14 Completed EKG (ED ONLY) *Do not use* NOW Care 08/29/25 10:[address] head/brain wo con Stat Exams 08/29/25 11:20 Completed EKG (ED Only) Stat Exams 08/29/25 08:14 Draft EKG (ED Only) Stat Exams 08/29/25 10:34 Draft XR chest 1V Stat Exams 08/29/25 08:40 Completed BNP [B-Type Natriuretic Peptide] Stat Lab 08/29/25 08:57 Completed CBC Stat Lab 08/29/25 08:57 Completed Comprehensive Metabolic Panel Stat Lab 08/29/25 08:57 Completed Troponin I Stat Lab 08/29/25 08:57 Completed Troponin I Stat Lab 08/29/25 11:54 Completed Clindamycin [Cleocin] Med 08/29/25 14:02 Discontinued 300 mg PO X1 ONE DiphenhydrAMINE INJ [Benadryl Inj] Med 08/29/25 10:33 Discontinued 25 mg IVP X1 ONE Famotidine Inj [Pepcid Inj] Med 08/29/25 10:35 Discontinued 20 mg IVP X1 ONE MethylPREDNISolone.* [SoluMEDROL Inj] Med 08/29/25 10:33 Discontinued 125 mg IVP X1 ONE Ringers Lactated 1000 ml [Lactated Ringers] 1,000 ml Med 08/29/25 11:15 Discontinued IV 999 mls/hr Vital Signs Vital signs: Vital Signs Temperature 98.0 F 08/29/25 08:23 Pulse Rate 52 L 08/29/25 08:23 Respiratory Rate 17 08/29/25 08:23 Blood Pressure 156/89 H 08/29/25 08:23 Pulse Oximetry (%) 95 08/29/25 08:23 Oxygen Delivery Method Room Air 08/29/25 08:23 Skin / Abscess / Foreign Body MDM Narrative MDM Narrative:: Patient is a 80-year-old female seen emerged from concerns for left lower extremity pain and blisters. Vital signs and exam as listed. Concern for allergic reaction to adhesive tape that had been placed on patient postoperatively. Also concern for allergic reaction to patient's antibiotic given that she started taking doxycycline and then felt itchy all over. Patient also with chronic bradycardia, heart rate in the 40s is her baseline. She has been evaluated by a cinder crusher operator for her bradycardia and state that this is her normal and given that she is asymptomatic does not need intervention 1118: After Benadryl, famotidine, and steroids the patient became teary eye and shaky and her heart rate went from her usual 40s to be in the 60?s. She is breathing well, no stridor, no oropharyngeal swelling, no rashes, no vomiting. After a few minutes, the patient stated she felt better. Per daughter, the patient has multiple allergies and saw an health program specialist, but no results of work up yet. Labs without any acute hematologic or significant metabolic abnormality, troponin normal on 2 different assessments, EKG with evidence of sinus bradycardia, chest x-ray unremarkable, head CT without any acute intracranial abnormalities. On multiple reassessments, patient back at her neurologic baseline, GCS 15, mentating well, hemodynamically stable, no signs of respiratory distress abdominal pain shortness of breath. Discussed at length patient's allergies with pharmacist, given her allergies to penicillins, doxycycline, recommends that we switch patient over to clindamycin. patient daughter request that we trail an alternative abx to docycycline while in the ED given her allergy hx. Consulted pharmacy, confirmed prophylactic dosing. Provided her with a dose of clindamycin here. Patient tolerated well following a period of observation. Will discharge to home with close return precautions follow-up with her primary care doctor. Patient only has 2 more days of antibiotics left. Advised her to stop the doxycycline and instead continue clindamycin. I, bAril Cardenas am scribing for and in the presence of Dr. De La Rosa. Patient data External records reviewed:: [facility] previous records Clinical information provided by:: patient and family Social determinants that could affect healthcare access:: none Patient has the following chronic illnesses:: History of bradycardia (baseline per cinder crusher operator). The patient underwent a left knee replacement on August [address] Sapp. How is presenting disease/condition affected by chronic disease/condition?: exacerbated by Evaluation data The following diagnostics were reviewed and interpreted by me:: lab results, radiology exam(s) and EKG tracing(s) (My interpretation: EKG performed at 1137 hours, sinus bradycardia, rate 58, normal intervals, non specific T wave changes, not a cardiac alert) Lab and/or radiology exams considered but not ordered:: none Interpretation Summary: See MDM narrative above. RADIOLOGY Procedure(s): XR chest 1V Accession Number(s): [id number] cc: Adama Pichardo MD; John Perales MD; Josee Jaramillo NP~ Examination: AP chest single view Technique one AP portable sitting chest single view Date and time: August 29, 2025, 0859 hrs. Indications: Chest pain today. Findings: Mild prominence left ventricle. Ectatic thoracic aorta. No pneumonia or pulmonary edema. Moderate osteopenia. Impression: No pneumonia or pulmonary edema Dictated By: John Perales MD Procedure(s): CT head/brain wo con Accession Number(s): [id number] cc: Adama Pichardo MD; John Perales MD; Sandy De La Rosa MD~ Examination: CT brain head without contrast. 2-D sagittal coronal reconstructions Date and time of exam:August 29, 2025, 12:29 PM Indications: Onset altered mental status confusion today CTDI: vol (mGy):44.6 DLP: (mGycm):813 Technique: Multiple CT axial sections of the brain have been obtained, 5 mm slice thickness. Contrast has not been administered. 2-D sagittal, coronal reconstructions have been obtained Low dose protocols were performed. One or more of the following dose reduction techniques were used; automated exposure control, adjustment of the mA and/or KV according to patient size, use of iterative reconstruction technique. Findings: No significant ventricular enlargement. Intra-axial or extra-axial hemorrhage density is not seen. No mass effect or midline shift Basal cisterns are not remarkable. Fourth ventricle is midline. Cranial vault intact. Impression: Negative for acute hemorrhage, mass effect or midline shift Advise clinical correlation and follow-up accordingly Dictated By: John Perales MD Medications / Prescriptions Medications or Prescriptions considered but not ordered:: none Medication administrations:: Medication Administration History Discontinued Medications Clindamycin HCl (Clindamycin 150 Mg Capsule) 300 mg PO X1 ONE Stop: 08/29/25 14:03 Last Admin: 08/29/25 14:34 Dose: 300 mg Documented By: EF Diphenhydramine HCl (Diphenhydramine Inj 50 Mg/Ml Vial) 25 mg IVP X1 ONE Stop: 08/29/25 10:34 Last Admin: 08/29/25 10:53 Dose: 25 mg Documented By: EF Famotidine (Famotidine Inj 10 Mg/Ml Vial 2 Ml) 20 mg IVP X1 ONE Stop: 08/29/25 10:36 Last Admin: 08/29/25 10:53 Dose: 20 mg Documented By: EF Lactated Ringer's (Lactated Ringers) 1,000 mls @ 999 mls/hr IV .Q1H1M ONE Stop: 08/29/25 12:15 Last Infusion: 08/29/25 12:22 Dose: Infused Documented By: Admin: 08/29/25 11:21 Dose: 999 mls/hr Documented By: EF Methylprednisolone Sodium Succinate (Methylprednisolone Sod Succ 62.5 Mg/Ml 2ml Vial) 125 mg IVP X1 ONE Stop: 08/29/25 10:34 Last Admin: 08/29/25 10:53 Dose: 125 mg Documented By: EF see above Consultations Consultation(s) initiated? (list below): No Diagnosis Skin/Abscess Differential Diagnosis: other (Contact dermatitis, antibiotic hypersensitivity reaction, and superficial wound irritation versus early cellulitis.) Most likely diagnosis given after review of the tests above:: Allergic reaction, blisters Admission Indicated Admission indicated?: not indicated Admission Request Was there a request for admission?: No Disposition Plan Disposition Plan: Discharge Discharge Attestation Discharge Attestation: The patient and all family members were given an opportunity to ask questions and understood the discharge instructions. Discharge instructions specifically effects, indications for sooner follow up or return to the emergency department, and the expected course of current diagnosis. Patient condition: Stable Critical Care Time Critical Care Time Critical Care Time: Yes Total Critical Care Time (min.): 45 Attestation: Total critical care time: Approximately?45 minutes Due to a high probability of clinically significant, life threatening deterioration, the patient required my highest level of preparedness to intervene emergently and I personally spent this critical care time directly and personally managing the patient. This critical care time included obtaining a history; examining the patient; pulse oximetry; ordering and review of studies; arranging urgent treatment with development of a management plan; evaluation of patient's response to treatment; frequent reassessment; and, discussions with other providers. This critical care time was performed to assess and manage the high probability of imminent, life-threatening deterioration that could result in multi-organ failure. It was exclusive of separately billable procedures and treating other patients and teaching time. Please see MDM section and the rest of the note for further information on patient assessment and treatment. Discharge Plan Plan Patient Disposition: HOME (Self Care) Prescriptions/Referrals Prescriptions/Med Rec: New clindamycin HCl [Cleocin HCl] 300 mg capsule 300 mg PO Q6H Qty: 8 0RF epinephrine [Auvi-Q] 0.3 mg/0.3 mL auto-injector 0.3 ml subcut PRN PRN (Reason: anaphylaxis) Qty: 2 0RF No Action alendronate 70 mg tablet 70 mg PO QWEEK aspirin 81 mg tablet,delayed release (DR/EC) 81 mg PO BID Qty: 60 0RF lisinopril-hydrochlorothiazide 20-25 mg tablet 1 tab PO DAILY sennosides-docusate sodium [Senna-S] 8.6-50 mg tablet 1 tab-cap PO QDAY Qty: 30 0RF aspirin 81 mg tablet,delayed release (DR/EC) 81 mg PO BID Qty: 60 0RF acetaminophen [Acetaminophen Extra Strength] 500 mg tablet 1,000 mg PO Q6H MDD 1000mg PRN (Reason: pain) Qty: 90 0RF gabapentin 300 mg capsule 300 mg PO .qhs Qty: 30 0RF doxycycline hyclate 100 mg tablet 100 mg PO BID Qty: 14 0RF oxycodone 5 mg tablet 5 mg PO Q6H MDD 20 PRN (Reason: pain) Qty: 28 0RF Rx Instructions: z96.65 Referrals: Adama Pichardo MD [Primary Care Provider, Family Practice] - In 1 week Problem List Clinical Impression: Blisters of multiple sites, Allergic reaction Patient/Caregiver Discharge Instructions Education Materials: ED Medicine Reaction: Allergic Additional Instructions: Please follow-up with urology specialist to further understand what you may be allergic to. I recommend that you follow-up with your orthopedic surgeon and discuss your reaction to doxycycline. We discussed at length your allergies with the pharmacist today, and they have recommended that we switch you over to clindamycin that you take 4 times a day for the next 2 days. Return immediately if you have any worsening symptoms or symptoms of concern Print Language: Divehi Stand Alone Forms: Lindsey Award Info., Patient Portal Info Letter
--- NOTE | 2025-08-29 11:20 | XR_ITS ---
Examination: CT brain head without contrast. 2-D sagittal coronal reconstructions Date and time of exam:August 29, 2025, 12:29 PM Indications: Onset altered mental status confusion today CTDI: vol (mGy):44.6 DLP: (mGycm):813 Technique: Multiple CT axial sections of the brain have been obtained, 5 mm slice thickness. Contrast has not been administered. 2-D sagittal, coronal reconstructions have been obtained Low dose protocols were performed. One or more of the following dose reduction techniques were used; automated exposure control, adjustment of the mA and/or KV according to patient size, use of iterative reconstruction technique. Findings: No significant ventricular enlargement. Intra-axial or extra-axial hemorrhage density is not seen. No mass effect or midline shift Basal cisterns are not remarkable. Fourth ventricle is midline. Cranial vault intact. Impression: Negative for acute hemorrhage, mass effect or midline shift Advise clinical correlation and follow-up accordingly
[2025-08-29] MEDS: RINGERS LACTATED 1000 ML 1,000 ML 999 ML IV (11:21)
[2025-08-29 12:21] LABS: Troponin I < 0.020 ng/mL (0.0-0.045)
[2025-08-29 12:50] VITALS: BP 164/67; PULSE 54; RESP 15; TEMP 36.4; O2SAT 95
[2025-08-29] MEDS: CLINDAMYCIN 150 MG CAPSULE 300 MG PO (14:34)
== END 2025-08-29 16:01 | disposition home or self-care (01) ==
PROVIDERS: Nurse Practitioner Family; Emergency Provider Emergency Medicine; PCP Family Medicine; Referring Provider Emergency Medicine
DX: S80.222A Blister (nonthermal), left knee, initial encounter (principal); X58.XXXA Exposure to other specified factors, initial encounter; T78.40XA Allergy, unspecified, initial encounter; Z96.652 Presence of left artificial knee joint; R00.1 Bradycardia, unspecified; R41.82 Altered mental status, unspecified
CPT/HCPCS: 36415; 70450; 71045; 80053; 83880; 84484; 85025; 93005; 96361; 96374; 96375; 99284; J1200; J2919; J3490; J7120; A9270

== ENCOUNTER 2025-09-14 12:57 | Outpatient (AMB) | payer MEDICARE, SELFPAY ==
[2025-09-14 13:34] VITALS: BP 120/73; PULSE 72; RESP 18; TEMP 36.2; O2SAT 91; BMI 24.9
--- NOTE | 2025-09-14 13:34 | ORTHONT_ITS ---
Vital signs 09/14/25 13:34 Height 1.57 m Height Method Stated Weight 61.462 kg Weight Measurement Method Standing Scale BMI 24.9 BP 120/73 Blood Pressure Source Automatic Cuff Blood Pressure Location Right Upper Arm Position Sitting Respiration 18 Pulse 72 Pulse Source Monitor Temp 97.2 F Temp Source Temporal Artery Scan Pulse Oximetry (%) 91 L Oxygen Delivery Method Room Air Med/Allergies Allergies & Medications Allergies doxycycline Allergy (Severe, Verified 09/14/25 13:36) Hives honey Allergy (Severe, Verified 09/14/25 13:36) Hives Penicillins Allergy (Severe, Verified 09/14/25 13:36) Hives Latex, Natural Rubber Allergy (Verified 09/14/25 13:36) Rash FISH OIL Allergy (Uncoded 09/14/25 13:36) Medication Reconciliation alendronate 70 mg tablet 70 mg PO QWEEK 08/12/24 [History Confirmed 09/14/25] aspirin 81 mg tablet,delayed release 81 mg PO BID #60 tabs 08/17/24 [Rx Confirmed 09/14/25] lisinopril 20 mg-hydrochlorothiazide 25 mg tablet 1 tab PO DAILY 08/20/25 [History Confirmed 09/14/25] acetaminophen 500 mg tablet (Acetaminophen Extra Strength) 1,000 mg (2 x 500 mg) PO Q6H PRN pain #90 tabs 08/25/25 [Rx Confirmed 09/14/25] aspirin 81 mg tablet,delayed release 81 mg PO BID #60 tabs 08/25/25 [Rx Confirmed 09/14/25] doxycycline hyclate 100 mg tablet 100 mg PO BID #14 tabs 08/25/25 [Rx Confirmed 09/14/25] gabapentin 300 mg capsule 300 mg PO .qhs #30 caps 08/25/25 [Rx Confirmed 09/14/25] oxycodone 5 mg tablet 5 mg PO Q6H PRN pain #28 tabs 08/25/25 [Rx Confirmed 09/14/25] sennosides 8.6 mg-docusate sodium 50 mg tablet (Senna-S) 1 tab-cap PO QDAY #30 tabs 08/25/25 [Rx Confirmed 09/14/25] clindamycin HCl 300 mg capsule (Cleocin HCl) 300 mg PO Q6H #8 caps 08/29/25 [Rx Confirmed 09/14/25] epinephrine 0.3 mg/0.3 mL injection, auto-injector (Auvi-Q) 0.3 ml subcut PRN PRN anaphylaxis #2 ea 08/29/25 [Rx Confirmed 09/14/25] Exam Exam Patient is in no acute distress and is cooperative with the examination today. Patient has a normal mood and affect. Breathing is nonlabored. In no respiratory distress. Bilateral extremities were evaluated and demonstrates sensation intact to light touch. Palpable pedal pulses are present. No significant edema is present. Right knee demonstrate incision that is clean dry and intact. He has range of motion is 0 to 100 degrees Left knee demonstrates range of motion from 0 to 100 degrees. She has varus alignment. She is tender to palpation medially X-rays from [facility] demonstrates complete joint space obliteration medial significant osteophytes Assessment and Plan Problem List (1) Bilateral knee pain: Status: Acute Plan: Alda is a 79-year-old female with bilateral knee pain status post right total knee replacement. Her left knee is now bothering her more. X-rays of the left knee demonstrates [id number] arthritis of the medial compartment. She has failed conservative treatment occluding multiple injections, anti- inflammatories, and home exercises. We thus discussed total knee replacement is a reasonable option The nature and purpose of the total knee replacement, alternative method(s) of treatment, the material risks involved, and the possibility of complications w ere fully explained to the patient. The patient does NOT have any of the following contraindications to TKA: - Active infection of the knee joint, OR - Active systemic bacteremia, OR - Active skin infection or open wound at surgical site, OR - Neuropathic arthritis, OR - Severe, rapidly progressive neurological disease, OR - Severe medical condition that makes risks of surgery outweigh the potential benefit The patient was told the most common risks and complications associated with a total knee replacement include, but are not limited to: blood clots in the leg, fatal pulmonary embolism, dislocation of the prosthesis, intraoperative and postoperative fractures of the femur or tibia, infection, failure of the prosthesis or grafting materials, complications from anesthesia, reactions to blood transfusions, postoperative leg length inequality, instability of the knee replacement, nerve damage or injury, vascular injury, delayed wound healing, infection, other injury or even . In addition, there are risks associated with anesthesia given during this operation. Also, the patient was told that after undergoing a total knee replacement there may still be persistent pain or disability. The patient was informed that the success of this operation in part depends upon the mechanical devices which are going to be implanted and that these devices can fail or malfunction, and may need to be repaired or replaced and there are no guarantees as to the longevity of this device or its parts and that it or its parts could fail prematurely. The patient was also notified that during the course of surgery, there may be a need to use bone graft from donors, and that any bone graft used will be carefully screened for communicable diseases, including AIDS, hepatitis, Bronson-Creutzfeldt, or other diseases, but despite the screening procedures, there is a small chance that they could contract one of these diseases. Finally, the patient was asked to follow completely and fully with all advice and recommended treatments, and that recovery and ultimate outcome are affected by their compliance with recommended treatment. We discussed the risks, benefits and treatment alternatives, and the patient is interested in proceeding with surgery. We will try to set this up as expeditiously as possible. (2) Bilateral primary osteoarthritis of knee: Status: Acute Advanced Care Planning Discussion Advance care planning discussed with:: patient Office Procedures GNS Level of Care Nursing/Assessment Patient Status: Established Patient Nursing Assessment/Reassesment: Medication Reconciliation, Update PMH in EMR and Vital Signs Coordination of Care: Complex Care and Chronic Disease 1-5, Education Complex Pt/Fam, Consent,records obtained, informed consent, 1 Ins Authorization, Lab and Imaging orders, Results/Orders obtained and Staff clarify orders Established Patient Charge Established Patient Point Assignment: 125 Established Patient Point Charge: EP Level 4 (120-155) MA Intake Visit Data Collection New Patient or Established: Established Patient (seen at [facility] within 3 years) Reason for Visit:: 2 WEEK POST OP TKA Seen by Clinical Staff ONLY (RN/MA): No Verbal consent obtained for Telemed visit?: No 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 PCP or OBGYN visit in last 3 months: Yes Hx Now: No Do You Feel Safe at Home: Yes Authorities Contacted: N/A Questionairres Past Medical History Past Medical History Have you ever been diagnosed with any of the following: Neurological Problems Transient Ischemic Attacks (TIA): Yes Seizures: No Migraine: Yes (yrs ago) Cardiology Problems Hypercholesterolemia: Yes Congestive Heart Failure: No Hypertension: Yes Varicose Veins: No Respiratory Problems Chronic Obstructive Pulmonary Disease (COPD): No Asthma: Yes Bronchitis: Yes Cough: No Wheezing: No Smoking: No Smoking Cessation Counseling: No Smoking Exposure: No Tobacco Use: No Stomache/Intestinal Problems Hepatitis: No Hiatal Hernia: Yes (abdominal hernia) Genital/Urinary Problems Renal Disease: No Reproductive Problems Previous Pregnancies: Yes Musculoskeletal Problems Arthritis: Yes Osteoporosis: Yes Fractures: Yes (left hip after fall 2022) Endocrine Problems Diabetes Mellitus Type 1: No Diabetes Mellitus Type 2: Yes (was taking med and told her to stooped.) Psychologic Problems Depression: Yes (No meds) Other Problems Hospitalization: Yes (surgery, TIA) Shingles: No Falls: Yes Blood Transfusions: No Blood Transfusion Reaction: No Anesthesia Reactions: No Chicken Pox: Yes Measles: Yes Mumps: Yes Cancer: No Subjective Visit Visit for: follow up visit, post op #1 and knee Immunization / Flu Flu Vaccine in the Last 12 Months: Yes Flu Vaccine Exclusion Criteria: No Exclusion Criteria and Already Received History of Present Illness Chief complaint: 2 WEEK POST OP TKA Patient is a pleasant 80 yo female with a right total knee replacement done 11 months ago and she is s/p L TKA. She is doing well We will see the patient back for routine follow-up for second postoperative visit. She is doing well. She will start outpatient physical therapy Personal History Occupation: DISABLED Red flag PMH: none BMI Counceling provided: No Pain Pain level (0-10): 9 Pain quality: dull, aching, burning and tingling Pain timing: night, increases with activity and stairs Associated signs & symptoms: none Ambulatory data Ambulatory device: walker Treatments Improvement with previous injections: No Improvement with PT: No Improvement with NSAIDS: no Review of Systems Review of Systems: All systems negative unless otherwise noted in HPI.
== END 2025-09-14 13:43 | disposition home or self-care (01) ==
LOC: HODSRG 12:57
PROVIDERS: PCP Family Medicine; Referring Provider Family Medicine; Supervising Provider Orthopaedic Surgery Adult Reconstructive Orthopaedic Surgery; Visit Provider Orthopaedic Surgery Adult Reconstructive Orthopaedic Surgery
DX: Z47.1 Aftercare following joint replacement surgery (principal); Z96.653 Presence of artificial knee joint, bilateral; M25.562 Pain in left knee; M25.561 Pain in right knee; I10 Essential (primary) hypertension
CPT/HCPCS: 99214; G0463

== ENCOUNTER 2025-10-12 13:45 | Outpatient (AMB) | payer MEDICARE, SELFPAY ==
[2025-10-12 13:57] VITALS: BP 118/74; PULSE 84; RESP 18; TEMP 36.1; O2SAT 94; BMI 25.3
--- NOTE | 2025-10-12 13:57 | PD.ORTHCLVIS ---
Vital signs 10/12/25 13:57 Height 1.57 m Height Method Stated Weight 62.397 kg Weight Measurement Method Standing Scale BMI 25.3 BP 118/74 Blood Pressure Source Automatic Cuff Blood Pressure Location Right Upper Arm Position Sitting Respiration 18 Pulse 84 Pulse Source Monitor Temp 96.9 F Temp Source Temporal Artery Scan Pulse Oximetry (%) 94 L Oxygen Delivery Method Room Air Med/Allergies Allergies & Medications Allergies doxycycline Allergy (Severe, Verified 10/12/25 13:58) Hives honey Allergy (Severe, Verified 10/12/25 13:58) Hives Penicillins Allergy (Severe, Verified 10/12/25 13:58) Hives Latex, Natural Rubber Allergy (Verified 10/12/25 13:58) Rash FISH OIL Allergy (Uncoded 10/12/25 13:58) Medication Reconciliation alendronate 70 mg tablet 70 mg PO QWEEK 08/12/24 [History Confirmed 10/12/25] aspirin 81 mg tablet,delayed release 81 mg PO BID #60 tabs 08/17/24 [Rx Confirmed 10/12/25] lisinopril 20 mg-hydrochlorothiazide 25 mg tablet 1 tab PO DAILY 08/20/25 [History Confirmed 10/12/25] acetaminophen 500 mg tablet (Acetaminophen Extra Strength) 1,000 mg (2 x 500 mg) PO Q6H PRN pain #90 tabs 08/25/25 [Rx Confirmed 10/12/25] aspirin 81 mg tablet,delayed release 81 mg PO BID #60 tabs 08/25/25 [Rx Confirmed 10/12/25] doxycycline hyclate 100 mg tablet 100 mg PO BID #14 tabs 08/25/25 [Rx Confirmed 10/12/25] gabapentin 300 mg capsule 300 mg PO .qhs #30 caps 08/25/25 [Rx Confirmed 10/12/25] oxycodone 5 mg tablet 5 mg PO Q6H PRN pain #28 tabs 08/25/25 [Rx Confirmed 10/12/25] sennosides 8.6 mg-docusate sodium 50 mg tablet (Senna-S) 1 tab-cap PO QDAY #30 tabs 08/25/25 [Rx Confirmed 10/12/25] clindamycin HCl 300 mg capsule (Cleocin HCl) 300 mg PO Q6H #8 caps 08/29/25 [Rx Confirmed 10/12/25] epinephrine 0.3 mg/0.3 mL injection, auto-injector (Auvi-Q) 0.3 ml subcut PRN PRN anaphylaxis #2 ea 08/29/25 [Rx Confirmed 10/12/25] Exam Exam Patient is in no acute distress and is cooperative with the examination today. Patient has a normal mood and affect. Breathing is nonlabored. In no respiratory distress. Bilateral extremities were evaluated and demonstrates sensation intact to light touch. Palpable pedal pulses are present. No significant edema is present. Right knee demonstrate incision that is clean dry and intact. He has range of motion is 0 to 100 degrees Left knee x-rays demonstrate range of motion 0 degrees. Incisions clean dry intact. Knee feels stable varus valgus stress as well as AP translation Assessment and Plan Problem List (1) Bilateral knee pain: Status: Acute Plan: Patient is doing well status post left total knee replacement. We will see her back in 8 weeks for routine follow-up. She had new x-rays today. Outpatient physical therapy set up. Her range of motion is good (2) Bilateral primary osteoarthritis of knee: Status: Acute Advanced Care Planning Discussion Advance care planning discussed with:: patient and child Office Procedures GNS Level of Care Nursing/Assessment Patient Status: Established Patient Nursing Assessment/Reassesment: Medication Reconciliation, Update PMH in EMR and Vital Signs Coordination of Care: Complex Care and Chronic Disease 1-5, Education Complex Pt/Fam, Consent,records obtained, informed consent, 1 Ins Authorization, Ref for ancillary service (PHYSICAL THERAPY), Results/Orders obtained and Staff clarify orders Special Needs: Language special needs Established Patient Charge Established Patient Point Assignment: 130 Established Patient Point Charge: EP Level 4 (120-155) MA Intake Visit Data Collection New Patient or Established: Established Patient (seen at [facility] within 3 years) Reason for Visit:: 6 WK POST OP TKA Seen by Clinical Staff ONLY (RN/MA): No Verbal consent obtained for Telemed visit?: No 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 PCP or OBGYN visit in last 3 months: Yes Hx Now: No Do You Feel Safe at Home: Yes Authorities Contacted: N/A Questionairres Past Medical History Past Medical History Have you ever been diagnosed with any of the following: Neurological Problems Transient Ischemic Attacks (TIA): Yes Seizures: No Migraine: Yes (yrs ago) Cardiology Problems Hypercholesterolemia: Yes Congestive Heart Failure: No Hypertension: Yes Varicose Veins: No Respiratory Problems Chronic Obstructive Pulmonary Disease (COPD): No Asthma: Yes Bronchitis: Yes Cough: No Wheezing: No Smoking: No Smoking Cessation Counseling: No Smoking Exposure: No Tobacco Use: No Stomache/Intestinal Problems Hepatitis: No Hiatal Hernia: Yes (abdominal hernia) Genital/Urinary Problems Renal Disease: No Reproductive Problems Previous Pregnancies: Yes Musculoskeletal Problems Arthritis: Yes Osteoporosis: Yes Fractures: Yes (left hip after fall 2022) Endocrine Problems Diabetes Mellitus Type 1: No Diabetes Mellitus Type 2: Yes (was taking med and told her to stooped.) Psychologic Problems Depression: Yes (No meds) Other Problems Hospitalization: Yes (surgery, TIA) Shingles: No Falls: Yes Blood Transfusions: No Blood Transfusion Reaction: No Anesthesia Reactions: No Chicken Pox: Yes Measles: Yes Mumps: Yes Cancer: No Subjective Visit Visit for: follow up visit, post op #2 and knee Immunization / Flu Flu Vaccine in the Last 12 Months: No Flu Vaccine Exclusion Criteria: No Exclusion Criteria History of Present Illness Chief complaint: 6 WK POST OP TKA Patient is a pleasant 80 yo female with a right total knee replacement done 11 months ago and she is s/p L TKA. She is doing well We will see the patient back for routine follow-up for second postoperative visit. She is doing well. 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
--- NOTE | 2025-10-12 14:07 | XR_ITS ---
EXAMINATION: Bilateral knees 2 views Right lateral knee left lateral knee 2 views Bilateral [place] single view TECHNIQUE: Bilateral AP knees standing single view, bilateral. Knees standing single view flexion Standing right lateral knee left lateral knee 2 views Bilateral Axuni single view total 5 views Date and time: October 12 2025, 1438 hours INDICATIONS: Bilateral knee replacements left knee August 2025 right knee 1 year ago FINDINGS: Significant osteopenia No fractures Bilateral total knee arthroplasties. Satisfactory alignment. No loosening of the prosthetic components. No patellar dislocations IMPRESSION: Bilateral total knee arthroplasties with satisfactory alignment
== END 2025-10-12 14:23 | disposition home or self-care (01) ==
LOC: HODSRG 13:45
PROVIDERS: PCP Family Medicine; Referring Provider Family Medicine; Supervising Provider Orthopaedic Surgery Adult Reconstructive Orthopaedic Surgery; Visit Provider Orthopaedic Surgery Adult Reconstructive Orthopaedic Surgery
DX: Z47.1 Aftercare following joint replacement surgery (principal); Z96.652 Presence of left artificial knee joint; M25.562 Pain in left knee; M25.561 Pain in right knee; I10 Essential (primary) hypertension
CPT/HCPCS: 73564; 99214; G0463